=== PATIENT | female | born 1930 | race Caucasian/White ===

== ENCOUNTER → 2018-02-01 | Outpatient (CLI) | payer MEDICARE, OTHER ==
[~2018-02-01] MED LIST: AMLODIPINE10 MG PO; CALCIUM CITRAT200 MG PO; CARVEDILOL6.25 MG PO; CENTRUM1 TAB PO; FOLIC ACID 40400 MCG PO; IRON TABLETS325 MG PO; LISINOPRIL40 MG PO; LOW DOSE ASPIRI81 MG PO; MEGARED; MELOXICAM7.5 MG PO; PANTOPRAZOLE40 MG PO; VITAMIN C500 MG PO; ZOLPIDEM5 MG PO
== END ==
LOC: COL.LAB 10:01
DX: Z01.812 Encounter for preprocedural laboratory examination (principal)